=== PATIENT | male | born 1990 | race Caucasian/White ===

== ENCOUNTER 2024-09-03 06:43 | Day surgery (SDC) | payer OTHER ==
[2024-09-02 09:29] VITALS: BMI 28.8
[2024-09-03] MEDS ORDERED: Lidocaine 1% PF 5 ML VIAL ONE (07:00)
[2024-09-03] MEDS ORDERED: PROPOFOL 40 ML ONE (07:00)
[2024-09-03] MEDS ORDERED: Ondansetron PF 4 MG/2 ML Vial ONE (07:00)
[2024-09-03] MEDS ORDERED: AFRIN NASAL MIST 15 ML BOT ONE ×2 (07:49→09:03)
[2024-09-03] MEDS ORDERED: Oxymetazoline HCl 0.05% (15 ML) ONE (08:00)
[2024-09-03] MEDS ORDERED: Bacitracin 1 PK ONE (09:03)
[2024-09-03] MEDS ORDERED: SUGAMMADEX SODIUM 200 MG/2 ML VIAL ONE (09:03)
[2024-09-03] MEDS ORDERED: HYDROcodone/Acetaminophen 5/325 mg Tablet ONE (10:44)
== END 2024-09-03 11:15 | disposition home or self-care (01) ==
LOC: CSHSDC 06:43
PROVIDERS: ATTEND Otolaryngology Plastic Surgery within the Head & Neck
DX: J34.2 Deviated nasal septum (principal); J34.3 Hypertrophy of nasal turbinates; J32.0 Chronic maxillary sinusitis; J32.1 Chronic frontal sinusitis; J32.2 Chronic ethmoidal sinusitis; J34.89 Other specified disorders of nose and nasal sinuses; J30.9 Allergic rhinitis, unspecified; Z88.0 Allergy status to penicillin
CPT/HCPCS: J1010; J1100; J2405; J2704; J3010